=== PATIENT | male | born 1955 | race Caucasian/White ===

== ENCOUNTER 2017-04-05 15:05 | Emergency (ER) | payer OTHER ==
[2017-04-05] MEDS: ACETAMINOPHEN 500 MG TAB PO (16:49)
[2017-04-05] MEDS: CEPHALEXIN 500 MG CAP PO (16:49)
[2017-04-05] MEDS: INSULIN LISPRO 100 UNIT/ML VIAL SC (17:08)
== END 2017-04-05 17:25 | disposition home or self-care (01) ==
LOC: FTE 15:05
DX: E10.8 Type 1 diabetes mellitus with unspecified complications (principal); J45.909 Unspecified asthma, uncomplicated; F17.210 Nicotine dependence, cigarettes, uncomplicated; Z79.4 Long term (current) use of insulin
CPT/HCPCS: 82962; 99284